=== PATIENT | male | born 1970 | race Hispanic/Latino ===

== ENCOUNTER 2024-09-18 14:16 | Inpatient (IN) | payer SELFPAY ==
[~2024-09-18] VITALS: Ht 167.6 cm; Wt 93.1 kg
[2024-09-18 14:47] LABS: IMMATURE GRANULOCYTE ABSOLUTE 0.04 K/uL (0-1); NUCLEATED RED BLOOD CELLS 0.0 % (0.0-0.19); PLATELET COUNT (AUTO) 202 K/uL (130-400); RED BLOOD CELL COUNT(AUTO) 5.48 MIL/uL (4.50-6.20); RED CELL DISTRIBUTION WIDTH 13.8 % (11.0-15.5); WHITE BLOOD COUNT (AUTO) 13.6 K/uL (4.8-10.8)
[2024-09-18 14:49] LABS: APPEARANCE,URINE CLEAR (CLEAR); GLUCOSE, URINE (UA) NEGATIVE (NEGATIVE); LEUKOCYTE ESTERASE ,URINE NEGATIVE Leu/uL (NEGATIVE); NITRATE,URINE NEGATIVE (NEGATIVE); OCCULT BLOOD,URINE NEGATIVE (NEGATIVE)
[2024-09-18 14:51] LABS: ADD UA MICROSCOPIC NO
[2024-09-18 14:53] LABS: CREATININE 2.1 mg/dL (0.5-1.3); GLOMERULAR FILTR. RATE CALC 37.0 mL/min (>90); GLUCOSE,RANDOM 103.0 mg/dL (70-105); SODIUM SERUM 141.0 mmol/L (136-145); UREA NITROGEN, BLOOD 26.0 mg/dL (7-18)
[2024-09-18] MEDS: 0.9%NACL 1000ML 1,000 ML IV STA (15:15)
--- NOTE | 2024-09-18 16:45 | HMCIMG ---
EXAM: CT Abdomen and Pelvis Without IV contrast CLINICAL HISTORY: flank pain TECHNIQUE: Axial computed tomography images of the abdomen and pelvis without intravenous contrast. CONTRAST: No IV contrast. COMPARISON: None provided. FINDINGS: LUNG BASES: Dependent airway disease along bilateral lower lobes, presumed to represent basal atelectasis. LIVER: Diffuse decrease in hepatic parenchymal attenuation. GALLBLADDER AND BILE DUCTS: The gallbladder appears within normal limits. No radioopaque gallstones are seen. No biliary ductal dilatation is evident. PANCREAS: Unremarkable. SPLEEN: Unremarkable. ADRENAL GLANDS: Unremarkable. KIDNEYS, URETERS, AND BLADDER: 2 mm stone in the right distal ureter (image 37 series 4) with mild right hydroureteronephrosis. 2 non-obstructing renal calculi in the lower calyx of the right kidney largest measuring 7.2 mm. No left renal or ureteral stones. No left hydronephrosis. STOMACH AND BOWEL: Unremarkable appearance of the stomach and bowel. No evidence of bowel obstruction. No evidence suggesting enteritis or colitis. APPENDIX: Normal appendix. PERITONEUM: No free fluid. No free air. LYMPH NODES: No enlarged lymphadenopathy is evident. REPRODUCTIVE: Unremarkable as visualized. VASCULATURE: No evidence of abdominal aortic aneurysm. BONES: Mild degenerative changes in he spine. No aggressively appearing osseous lesion. No acute osseous pathology is evident. IMPRESSION: 2 mm stone in the right distal ureter with mild right hydroureteronephrosis. Subcentimeter nonobstructing right renal collecting system stones. No left-sided stones. No left-sided hydronephrosis. No bowel obstruction or inflammation. Normal appendix. Fatty liver. /[place]
--- NOTE | 2024-09-18 16:53 | ERN ---
ED Note History of Present Illness Stated Complaint: BACK PAIN Chief Complaint: Low Back Pain/Injury Time Seen by MD: 14:25 Time Seen by Midlevel: 14:30 Dictation: 53-year-old male coming in with complaints of right flank pain started yesterday after lifting something heavy. Patient also states he has had nausea and vomiting yesterday. Denies any fever, cough, congestion, abdominal pain, hematuria or dysuria. Allergies: Coded Allergies: No Known Drug Allergies (Unverified Allergy, Unknown, 09/18/24) Past Medical History Past Medical History: No Pertinent History Surgical History: None Review of System Dictation Constitutional: Negative for fever,chills, and weight loss Eyes: Negative for injury, pain,redness, and discharge ENT: Negative for injury,pain or swelling Cardiovascular: Negative for chest pain, palpitations, and edema Respiratory: Negative for shortness of breath, cough, and wheezing, Abdomen/GI: Negative for abdominal pain, nausea, vomiting, diarrhea, and constipation Back: Complaining of right back pain : Negative for injury, bleeding and discharge MS/Extremity: Negative for injury and deformity Skin: Negative for rash, and discoloration Neuro: Negative for headache, weakness, numbness, tingling, and seizure Psych: Negative for suicide ideation, homicidal ideation, and hallucinations Review of Systems: was completed Initial Vital Sign VS Vital Signs Date Time Temp Pulse Resp B/P (MAP) Pulse Ox O2 Delivery O2 Flow Rate FiO2 09/18/24 14:19 98.4 82 18 162/93 98 09/18/24 18:42 Room Air* 0 21 Physical Exam Dictation General: awake, alert, NAD Head/Face: Normocephalic, atraumatic Eyes: PERRL, EOMI, vision at baseline ENT: oral cavity clear, TMs clear, no signs of infection Neck: Trachea midline, supple, no nuchal rigidity Cardiovascular: RRR, normal S1/S2, No MRGs, no JVD Respiratory: CTAB, no respiratory distress, No rales or wheezes Abdomen: Soft, non-tender, non-distended, normal bowel sounds, no guarding or rebound., right CVA tenderness Skin: Warm, dry, normal turgor, no rash MS/Extremity: Pulses equal, no cyanosis, neurovascular intact, FROM Neuro: COAx4, GCS 15, strength 5/5, CN 2-12 intact, normal cerebellar exam, normal gait, Psych: Normal behavior, mood, and affect normal Results (Laboratory/Radiology) Laboratory/Radiology Laboratory Tests Test 09/18/24 14:38 09/18/24 14:40 09/18/24 16:59 White Blood Count 13.6 K/uL (4.8-10.8) H Red Blood Count 5.48 MIL/uL (4.50-6.20) Hemoglobin 16.3 g/dL (14.0-18.0) Hematocrit 47.0 % (42-54) Mean Corpuscular Volume 85.8 fL (79-99) Mean Corpuscular Hemoglobin 29.7 pg (27.0-33.0) Mean Corpuscular Hemoglobin Concent 34.7 g/dL (32.0-36.0) Red Cell Distribution Width 13.8 % (11.0-15.5) Platelet Count 202 K/uL (130-400) Mean Platelet Volume 10.0 fL (7.5-10.5) Immature Granulocyte % (Auto) 0.3 % (0-1) Neutrophils (%) (Auto) 81.9 % (40.0-77.0) H Lymphocytes (%) (Auto) 11.2 % (21.0-51.0) L Monocytes (%) (Auto) 6.0 % (3.0-13.0) Eosinophils (%) (Auto) 0.4 % (0.0-8.0) Basophils (%) (Auto) 0.2 % (0.0-5.0) Neutrophils # (Auto) 11.1 K/uL (1.8-7.7) H Lymphocytes # (Auto) 1.5 K/uL (1.0-4.8) Monocytes # (Auto) 0.8 K/uL (0.1-1.0) Eosinophils # (Auto) 0.05 K/uL (0.00-0.70) Basophils # (Auto) 0.03 K/uL (0.00-0.20) Absolute Immature Granulocyte (auto 0.04 K/uL (0-1) Nucleated Red Blood Cells 0.0 % (0.0-0.19) Sodium Level 141 mmol/L (136-145) 140 mmol/L (136-145) Potassium Level 3.2 mmol/L (3.5-5.1) L 4.2 mmol/L (3.5-5.1) Chloride Level 103 mmol/L (101-111) 104 mmol/L (101-111) Carbon Dioxide Level 28 mmol/L (21-32) 24 mmol/L (21-32) Blood Urea Nitrogen 26 mg/dL (7-18) H 25 mg/dL (7-18) H Creatinine 2.1 mg/dL (0.5-1.3) H 2.0 mg/dL (0.5-1.3) H Glomerular Filtration Rate Calc 37 mL/min (>90) 39 mL/min (>90) Random Glucose 103 mg/dL (70-105) 98 mg/dL (70-105) Total Calcium 9.1 mg/dL (8.5-10.1) 8.6 mg/dL (8.5-10.1) Urine Color LIGHT-YELLOW (YELLOW) Urine Appearance CLEAR (CLEAR) Urine pH 6.0 (5.0-8.0) Urine Specific [place] 1.024 (1.001-1.031) Urine Protein NEGATIVE mg/dL (NEGATIVE) Urine Glucose (UA) NEGATIVE mg/dL (NEGATIVE) Urine Ketones NEGATIVE mg/dL (NEGATIVE) Urine Occult Blood NEGATIVE (NEGATIVE) Urine Nitrate NEGATIVE (NEGATIVE) Urine Bilirubin NEGATIVE mg/dL (NEGATIVE) Urine Urobilinogen 0.2 mg/dL (0.2-1.0) Urine Leukocyte Esterase NEGATIVE [place]/uL Labs Reviewed?: Yes CT Scan Comment: [place] [address] IMAGING REPORT Signed PATIENT: MAE RAMIREZ MR#: [id number] : 1970 SEX: M AGE: 53 LOCATION: [facility] [address] ORDER [id number] STATUS: REG ER REPORT#: [id number] SERVICE [id number] REASON: flank pain ORDERING PHYSICIAN: ALISTAIR SALEH NP PROCEDURE: ABD PEL WO - CT ABDOMEN/PELVIS W/O CONTRAST EXAM: CT Abdomen and Pelvis Without IV contrast CLINICAL HISTORY: flank pain TECHNIQUE: Axial computed tomography images of the abdomen and pelvis without intravenous contrast. CONTRAST: No IV contrast. COMPARISON: None provided. FINDINGS: LUNG BASES: Dependent airway disease along bilateral lower lobes, presumed to represent basal atelectasis. LIVER: Diffuse decrease in hepatic parenchymal attenuation. GALLBLADDER AND BILE DUCTS: The gallbladder appears within normal limits. No radioopaque gallstones are seen. No biliary ductal dilatation is evident. PANCREAS: Unremarkable. SPLEEN: Unremarkable. ADRENAL GLANDS: Unremarkable. KIDNEYS, URETERS, AND BLADDER: 2 mm stone in the right distal ureter (image 37 series 4) with mild right hydroureteronephrosis. 2 non-obstructing renal calculi in the lower calyx of the right kidney largest measuring 7.2 mm. No left renal or ureteral stones. No left hydronephrosis. STOMACH AND BOWEL: Unremarkable appearance of the stomach and bowel. No evidence of bowel obstruction. No evidence suggesting enteritis or colitis. APPENDIX: Normal appendix. PERITONEUM: No free fluid. No free air. LYMPH NODES: No enlarged lymphadenopathy is evident. REPRODUCTIVE: Unremarkable as visualized. VASCULATURE: No evidence of abdominal aortic aneurysm. BONES: Mild degenerative changes in he spine. No aggressively appearing osseous lesion. No acute osseous pathology is evident. IMPRESSION: 2 mm stone in the right distal ureter with mild right hydroureteronephrosis. Subcentimeter nonobstructing right renal collecting system stones. No left-sided stones. No left-sided hydronephrosis. No bowel obstruction or inflammation. Normal appendix. Fatty liver. /[place] DICTATED BY: LORENZO LATHAM MD DATE: 09/18/241744 ELECTRONICALLY SIGNED BY: LORENZO LATHAM MD DATE: 09/18/241744 ED Course ED Course Orders Procedure Category Date Status Time Cbc With Differential LAB 09/18/24 Complete 14:28 Basic Metabolic Panel LAB 09/18/24 Complete 14:28 Urinalysis Profile LAB 09/18/24 Complete 14:28 0.9%Nacl 1000ml (Ns PHA 09/18/24 Complete 1000ml) 14:28 Ketorolac PHA 09/18/24 Complete Tromethamine 15mg/Ml 14:28 Ct Abdomen/Pelvis W/O CT 09/18/24 Resulted Contrast 15:41 Basic Metabolic Panel LAB 09/18/24 Complete 16:53 Current Medications Medications (Trade) Dose Ordered Sig/Sadie Route PRN Reason Start Time Stop Time Status Last Admin Dose Admin Ketorolac Tromethamine (toRADol) 15 mg ONCE STAT IV 09/18/24 14:28 09/18/24 14:31 DC 09/18/24 15:15 Sodium Chloride 1,000 ml @ 1,000 mls/hr Q1H STAT IV 09/18/24 14:28 09/18/24 15:27 DC 09/18/24 15:15 Vital Signs Date Time Temp Pulse Resp B/P (MAP) Pulse Ox O2 Delivery O2 Flow Rate FiO2 09/18/24 18:42 98.4 80 18 157/100 98 Room Air* 0 21 09/18/24 14:19 98.4 82 18 162/93 98 Medical Decision Making MDM MDM: 53-year-old male coming in with complaints of right flank pain started yesterday after lifting something heavy. Patient also states he has had nausea and vomiting yesterday. Denies any fever, cough, congestion, abdominal pain, hematuria or dysuria. Blood work is showing leukocytosis of 13, no anemia, no thrombocytopenia. Chemistry shows elevated creatinine at 2.1 with a elevated BUN. Patient states he has no record of ever having kidney problems. CT scan shows nonobstructing kidney stones in the right. We will admit patient for DELANEY, nephrolithiasis. Differential diagnosis: Kidney stone, muscle spasm, dehydration Rationale: Tests considered and ordered secondary to shared decision making include: labs, ECG and radiology Previous outside records reviewed: Old ER visits. Risk of complication and/or morbidity or mortality of patient management: None Medications-Per medication reconciliation Need for hospitalization: Patient does meet criteria for hospitalization. Need for emergency major/minor surgery: No There are no social concerns with this patient. Prescription drug management Prescriptions will include symptomatic care Patient's prior external medical records from other ER visits were reviewed by me as indicated. Prior testing and results from previous visits were reviewed. Prior tests were taken into account with medical decision making and resource utilization, independent historian/historians were used to obtain complete medical history. I independently interpreted the test that were performed, results were reviewed by me and considered findings on radiology if ordered. Medical management and examination interpretation discussions were had by me with other qualified healthcare professionals as indicated for the patient's care. DX & DISP Disposition: Discharge Decision to Admit Date: Sep 18, 2024 Decision to Admit Time: 18:56 Departure Impression: Primary Impression: Nephrolithiasis Additional Impression: DELANEY (acute kidney injury) Condition: Stable Referrals: SELF,REFERRAL (PCP) ALISTAIR SALEH NP Sep 18, 2024 16:53
[2024-09-18 17:17] LABS: CREATININE 2.0 mg/dL (0.5-1.3); GLOMERULAR FILTR. RATE CALC 39.0 mL/min (>90); GLUCOSE,RANDOM 98.0 mg/dL (70-105); SODIUM SERUM 140.0 mmol/L (136-145); UREA NITROGEN, BLOOD 25.0 mg/dL (7-18)
--- NOTE | 2024-09-18 18:56 | HP ---
History of Present Illness Reason for Visit: flank pain History of Present Illness Mr. Mchugh is a 53-year-old male that was seen and examined today on 09/18/2024. Patient is a good historian of personal health Patient reports that he came to the emergency department with a chief complaint of back pain. Onset was 09/17/2024 at 6:00 p.m.. Location is right lower back. Duration is on and off. Character is described as sharp. 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 There was no alleviating factors. Patient reports associated nausea and vomiting x4 episodes yesterday. Past Medical History ADDITIONAL PAST MEDICAL HISTORY: [Denies] SOCIAL HISTORY: [Negative for smoking, alcohol use, drug use. Patient lives alone. Patient is typically independent of all his ADLs. Patient denies difficulty pain is bills. 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 Dyspnea, Edema, Lt Headedness, Other Gastrointestinal: No: Nausea, Vomiting, Abdominal Pain, Diarrhea, Constipation, Melena, Hematochezia, Other Genitourinary: No Dysuria, No Frequency, No Incontinence, No Hematuria, No Retention, No Other Musculoskeletal: back pain; No: other, neck pain, shoulder pain, arm pain, hand pain, leg pain, foot pain Skin: No Urticaria, No Rash, No Other Neurological: No: Weakness, Numbness, Incoordination, Change in speech, Confusion, Seizures, Other Allergies: Coded Allergies: No Known Drug Allergies (Unverified Allergy, Unknown, 09/18/24) Exam Vital Signs Vital Signs Date Time Temp Pulse Resp B/P (MAP) Pulse Ox O2 Delivery O2 Flow Rate FiO2 09/18/24 18:42 98.4 80 18 157/100 98 Room Air* 0 21 General Appearance: Alert, Oriented X3, Cooperative, No acute distress HEENT: Atraumatic, EOMI, Mucous membr. moist/pink Respiratory: Clear to auscultation, Normal air movement, NL respiratory effort Cardiovascular: Regular rate, Regular rhythm, Normal S1, Normal S2 Abdominal: Normal bowel sounds, No tenderness Extremities: No edema Skin: No significant lesion Neuro: Normal speech, Strength at 5/5 X4 ext, Sensation intact, Cranial nerves 3-12 NL Psych/Mental Status: Mental status NL, Mood NL, Thoughts/Content NL Assessment/Plan ASSESSMENT: [ Acute kidney injury, POA Nephrolithiasis, POA Leukocytosis, POA Hypokalemia, POA Right hydroureteronephrosis, POA] PLAN: [ Admit patient to medical floor as inpatient status. Lactated Ringer's at 75 mL/HR Calculate FENA Check urine sodium, creatinine, osmolality Avoid nephrotoxic agents when possible Renally dose all medications when possible Consider consulting Nephrology service if any worsening renal function or evidence of ATN. Monitor patient's labs. Weight patient daily. Monitor intake and output. Strain all urine Flomax 0.4 mg by mouth once daily Check procalcitonin, follow up with the results Check lactic acid, follow up with the results Check blood culture, follow up with the results Replace potassium per hospital protocol Consider consulting Urology if no improvement in symptoms GI prophylaxis, famotidine DVT prophylaxis, heparin ADVANCED CARE PLANNING 1. Which of the following were discussed? Hospice Care - Yes Therapeutic options - yes Advance Directives - Yes - patient states he does not have any advance directives in place at this time however his son Kevin Mchugh junior can make decisions for him if he becomes unable. Other discussions - patient wishes to remain a full code at this time 2. Discussed with who? Patient 3. Voluntary nature of this service was explained to the patient? Yes 4. Amount of time spent - ___16 minutes____ 5. Reviewed by Physician? (if this service was performed by NPP) Yes This document was generated in part using voice recognition software, occasional wrong word or sound alike substitutions may have occurred due to the inherent limitations of voice recognition software. Read the chart carefully and recognize using context, where the substitutions have occurred. Although every effort was made to edit the content, residential door unit installer and typing errors may occur ATTESTATION BY PHYSICIAN I have seen and examined the patient. I reviewed the documentation, medical decision making, and treatment plan as noted by the mid-level provider above. I agree with the findings and plan of care.] TIANA LYMAN [facility] Sep 18, 2024 18:56
[2024-09-18] MEDS ORDERED: PoTASSium chloRIDE 20MEQ ER 20 MEQ ERTAB PO PRN (19:30)
[2024-09-18] MEDS: LACTATED RINGERS 1000ML 1,000 ML IV SCH (19:44)
[2024-09-18 20:40] LABS: CREATININE,URINE RANDOM 135.76 mg/dL (30-135)
--- NOTE | 2024-09-18 21:36 | NUR ---
Note gina in ED - 09/18/24 at 2138 by AGUSTO AW RENAL ARTERY TO BE DONE, PATIENT HAS A RENAL ARTERY [place] DONE 3 WEEKS AGO PER SONOGROPHER WHICH SHE WAS NEGATIVE OF STENOSIS.
[2024-09-19] VITALS (7 sets, daily range): BP systolic 141–157; BP diastolic 92–101; PULSE 78–89; RESP 18–20; TEMP 98–99.8; O2SAT 98
[2024-09-19] MEDS ORDERED: ACET-2743 PO (02:44)
[2024-09-19 05:27] LABS: IMMATURE GRANULOCYTE ABSOLUTE 0.02 K/uL (0-1); NUCLEATED RED BLOOD CELLS 0.0 % (0.0-0.19); PLATELET COUNT (AUTO) 165 K/uL (130-400); RED BLOOD CELL COUNT(AUTO) 5.00 MIL/uL (4.50-6.20); RED CELL DISTRIBUTION WIDTH 13.8 % (11.0-15.5); WHITE BLOOD COUNT (AUTO) 9.5 K/uL (4.8-10.8)
[2024-09-19 05:53] LABS: CREATININE 2.2 mg/dL (0.5-1.3); GLOMERULAR FILTR. RATE CALC 35.0 mL/min (>90); GLUCOSE,RANDOM 94.0 mg/dL (70-105); PHOSPHORUS 2.9 mg/dL (2.5-4.9); SODIUM SERUM 141.0 mmol/L (136-145); UREA NITROGEN, BLOOD 24.0 mg/dL (7-18)
[2024-09-19] MEDS: PoTASSium chl 10% ELIXIR 20MEQ 20 MEQ/15 ML UDCUP PO PRN (06:41)
[2024-09-19] MEDS: PoTASSium chloRIDE 20MEQ ER 20 MEQ ERTAB PO ONE (09:30)
--- NOTE | 2024-09-19 10:38 | NUR ---
DCP: HOME Pt currently lives alone in her home. Pt does not have DME, home health, or provider services. Pt states that she can complete ADLs independently. Pt does not have a Dr he follows up with but stated that he will be trying to register at [facility] once he DC. At DC pt will want to go home and family can assist with transportation. Addendum: 09/19/24 at 1040 by JOSEPH ARMANDO SS Amended: Links added.
--- NOTE | 2024-09-19 10:50 | PN ---
[facility] PROGRESS NOTE Date of Service: Sep 19, 2024 Time of Service: 10:29 SUBJECTIVE: The patient is a 53-year-old male, no significant past medical history, admitted to hospital with a chief complaint of back pain. In the emergency room a CT of the abdomen and pelvis was done, found to have a 2 mm stone in the right distal ureter with mild right hydroureteronephrosis. Subcentimeter nonobstructing right renal collecting system stones, no left-sided stones, no left-sided hydronephrosis. No bowel obstruction or inflammation, normal appendix, fatty liver. 09/19 patient remains admitted to the medical floor, BP 142/96, afebrile, satur ating normal on room air, CBC unremarkable, potassium 3.3, BUN 24, creatinine 2.2. Continue Flomax 0.4 mg p.o. daily, continue supportive care with IV fluids, pain medication as needed, we will request Urology consultation, close monitoring of the patient's renal function in a.m.. During my visit the patient is comfortably in bed, alert oriented x3, getting supportive care with IV fluids, good pain control with current medical management, family at bedside, updated on plan of care, all questions answered, agreed and understood the information provided. REVIEW OF SYSTEMS CONSTITUTIONAL: Denies fevers, chills, or night sweats. No unintentional weight loss reported. NEUROLOGICAL: Denies headache, amaurosis fugax, motor weakness, sensory deficit, vertigo/spinning sensation, gait abnormalities, or tremors. ENT: No hearing loss, otalgia, otorrhea, rhinitis, rhinorrhea, hoarseness, or sore throat. CARDIOVASCULAR: Denies any exertional angina, dyspnea on exertion, orthopnea, paroxysmal nocturnal dyspnea, palpitations, life-threatening arrhythmias, claudication. PULMONARY: Denies any shortness of breath, cough, phlegm/sputum, hemoptysis, pleuritic chest pain. SLEEP: Denies morning headaches, daytime somnolence or napping. Denies difficulty falling asleep, staying asleep, waking from sleep. Denies knowledge of snoring. GASTROINTESTINAL: Denies any type of dysphagia to either liquids or solids. Denies nausea, vomiting, pyrosis, early satiety, abdominal pain, diarrhea, constipation, or changes in stool consistency or caliber. Denies coffee-ground emesis, hematemesis, hematochezia, or melanotic stools. GENITOURINARY: Denies frequency, urgency, nocturia, hematuria or incontinence (Storage/Irritative symptoms.) Low urinary stream, straining to void, urinary intermittency or hesitancy, splitting of the voiding stream, terminal dribbling. ENDOCRINOLOGIC: Denies polyuria, polydipsia, polyphagia or heat/cold intolerances. HEMATOLOGIC: Denies thrombophilia/previous clots, or coagulopathy/bleeding disorders. ONCOLOGIC: Denies personal history of malignancy. DERMATOLOGIC: Denies rashes or pruritus. PSYCHIATRIC: Denies any suicidal or homicidal ideation. Denies hallucinations. PHYSICAL EXAM GENERAL APPEARANCE: The patient is awake, alert, and oriented, in no acute cardiopulmonary distress. NEUROLOGICAL: Cranial nerves II-XII grossly intact. Motor is 5/5 in bilateral upper and lower extremities proximal to distal. No sensory deficits. HEENT: Face is symmetric. Pupils are equal and reactive. Extraocular movements are intact. NECK: Supple. No JVD. No thyromegaly. No submental, submandibular, pre- /postauricular, occipital or supraclavicular lymphadenopathy. CHEST: Normal chest expansion. No Telemetry. LUNGS: Absence of any rales, rhonchi or any wheezing. CARDIOVASCULAR: Regular. S1 and S2 normal. No appreciable rubs, murmurs or gallops. ABDOMEN: Soft, nontender, and nondistended. There is no rebound, voluntary guarding, or rigidity. : Deferred. No Moralez. EXTREMITIES: Non-edematous and not cyanotic. No clubbing. Good capillary refill. SKIN: No skin breakdown. Vital Signs (last 8hr) Date Time Temp Pulse Resp B/P (MAP) Pulse Ox O2 Delivery O2 Flow Rate FiO2 09/19/24 07:59 98.1 82 18 142/96 98 Room Air 21 09/19/24 03:25 78 156/94 09/19/24 03:23 Room Air* 0 21 LABS: Laboratory: Test 09/19/24 05:24 09/18/24 20:24 09/18/24 19:24 09/18/24 14:40 Range/Units White Blood Count 9.5 # 4.8-10.8 K/uL Red Blood Count 5.00 4.50-6.20 MIL/uL Hemoglobin 14.8 14.0-18.0 g/dL Hematocrit 43.7 42-54 % Mean Corpuscular Volume 87.4 79-99 fL Mean Corpuscular Hemoglobin 29.6 27.0-33.0 pg Mean Corpuscular Hemoglobin Concent 33.9 32.0-36.0 g/dL Red Cell Distribution Width 13.8 11.0-15.5 % Platelet Count 165 130-400 K/uL Mean Platelet Volume 10.2 7.5-10.5 fL Immature Granulocyte % (Auto) 0.2 0-1 % Neutrophils (%) (Auto) 76.4 40.0-77.0 % Lymphocytes (%) (Auto) 14.4 L 21.0-51.0 % Monocytes (%) (Auto) 7.8 3.0-13.0 % Eosinophils (%) (Auto) 0.8 0.0-8.0 % Basophils (%) (Auto) 0.4 0.0-5.0 % Neutrophils # (Auto) 7.3 1.8-7.7 K/uL Lymphocytes # (Auto) 1.4 1.0-4.8 K/uL Monocytes # (Auto) 0.7 0.1-1.0 K/uL Eosinophils # (Auto) 0.08 0.00-0.70 K/uL Basophils # (Auto) 0.04 0.00-0.20 K/uL Absolute Immature Granulocyte (auto 0.02 0-1 K/uL Nucleated Red Blood Cells 0.0 0.0-0.19 % Sodium Level 141 136-145 mmol/L Potassium Level 3.3 L 3.5-5.1 mmol/L Chloride Level 106 101-111 mmol/L Carbon Dioxide Level 25 21-32 mmol/L Blood Urea Nitrogen 24 H 7-18 mg/dL Creatinine 2.2 H 0.5-1.3 mg/dL Glomerular Filtration Rate Calc 35 >90 mL/min Random Glucose 94 70-105 mg/dL Total Calcium 8.6 8.5-10.1 mg/dL Phosphorus Level 2.9 2.5-4.9 mg/dL Magnesium Level 2.10 1.80-2.40 mg/dL Urine Random Creatinine 135.76 H 30-135 mg/dL Urine Random Sodium 44 40-220 mmol/l Lactic Acid Level 1.4 0.8-2.5 mmol/L Procalcitonin 0.14 0.05-0.5 ng/mL Urine Color LIGHT-YELLOW YELLOW Urine Appearance CLEAR CLEAR Urine pH 6.0 5.0-8.0 Urine Specific [place] 1.024 1.001-1.031 Urine Protein NEGATIVE NEGATIVE mg/dL Urine Glucose (UA) NEGATIVE NEGATIVE mg/dL Urine Ketones NEGATIVE NEGATIVE mg/dL Urine Occult Blood NEGATIVE NEGATIVE Urine Nitrate NEGATIVE NEGATIVE Urine Bilirubin NEGATIVE NEGATIVE mg/dL Urine Urobilinogen 0.2 0.2-1.0 mg/dL Urine Leukocyte Esterase NEGATIVE NEGATIVE [place]/uL Current Medications Medications (Trade) Dose Ordered Sig/Sadie Route PRN Reason Start Time Stop Time Status Last Admin Dose Admin Acetaminophen (TYLenol 325MG TAB) 650 mg Q6H PRN PO TEMPERATURE GREATER THAN 101.5 09/18/24 19:30 10/18/24 19:29 Heparin Sodium (Porcine) (HEParin 5,000 UNIT VIAL) 5,000 unit BID SQ 09/18/24 21:00 10/18/24 20:59 09/19/24 08:26 5,000 UNIT Hydralazine HCl (APRESOLine 20MG INJ) 10 mg Q6H PRN IV For:SBP above 160;DBP above 90 09/18/24 19:30 10/18/24 19:29 Ketorolac Tromethamine (toRADol) 15 mg ONCE STAT IV 09/18/24 14:28 09/18/24 14:31 DC 09/18/24 15:15 15 MG Lactated Ringer's 1,000 ml @ 75 mls/hr [id number] IV 09/18/24 19:30 10/18/24 19:29 09/18/24 19:44 75 MLS/HR Magnesium Sulfate 50 ml @ 0 mls/hr PROTOCOL PRN IV h 09/18/24 19:30 10/18/24 19:29 Morphine Sulfate (morPHINE 2MG SYG) 2 mg Q4H PRN IVP SEVERE PAIN (7-10) 09/18/24 19:30 09/25/24 19:29 09/19/24 04:03 2 MG Ondansetron HCl (zoFRAN 4MG INJ) 4 mg Q6H PRN IV NAUSEA/VOMITING 09/18/24 19:30 10/18/24 19:29 Pantoprazole Sodium (PROTonix 40MG TAB) 40 mg DAILY PO 09/19/24 09:00 10/19/24 08:59 09/19/24 08:22 40 MG Potassium Chloride 100 ml @ 100 mls/hr AD PRN IV POTASSIUM PROTOCOL 09/18/24 19:30 10/18/24 19:29 Potassium Chloride (K-Dur/Klor-Con 20meq) 20 meq AD PRN PO POTASSIUM PROTOCOL 09/18/24 19:30 10/18/24 19:29 Potassium Chloride (KCl 10% Elixir 20meq/15ml) 20 meq AD PRN PO POTASSIUM PROTOCOL 09/18/24 19:30 10/18/24 19:29 09/19/24 08:22 20 MEQ Sodium Chloride 1,000 ml @ 1,000 mls/hr Q1H STAT IV 09/18/24 14:28 09/18/24 15:27 DC 09/18/24 15:15 1,000 MLS/HR Tamsulosin HCl (FloMAX) 0.4 mg DAILY PO 09/19/24 09:00 10/19/24 08:59 09/19/24 08:22 0.4 MG DIAGNOSTICS / RADIOLOGY: [ ] ASSESSMENT: Acute kidney injury, POA Nephrolithiasis, POA Leukocytosis, POA Hypokalemia, POA Right hydroureteronephrosis, POA PLAN: Continue Flomax 0.4 mg p.o. daily, continue supportive care with IV fluids, pain medication as needed, we will request Urology consultation, close monitoring of the patient's renal function in a.m.. NEURO: Minimize central acting medications as possible. Fall Precautions. Well lighted room through the day and minimize interruptions through the night to prevent acute delirium. PULMONARY: Supplemental 02 as needed BiPAP as necessary, for respiratory distress Titrate Fio2 to keep Spo2 > or = 90% DuoNebs and CPT as needed IS hourly while awake for pulmonary hygiene prn Out of bed to chair as tolerated Maintain aspiration precautions at all times CARDIOVASCULAR: Follow hemodynamics. Vital signs per facility protocol GI & NUTRITION: Continue nutritional support Aspirations precautions Prokinetic agents and laxatives as needed KIDNEYS & ELECTROLYTES: Strict monitoring of intake and output Daily weights Avoid nephrotoxic agents Monitor electrolytes and replace as needed Goal urine output of 30mL/hr or 0.5mL/kg/hr Medications to be dosed according to renal function. Avoid contrast if possible ENDOCRINE: Maintain blood glucose between 100-180 at all times. Insulin sliding scale for blood glucose management Hypoglycemia and hyperglycemia protocol in place INFECTIOUS DISEASE: Trend temperature, WBC and procalcitonin level Follow cultures, deescalate antibiotics as soon as possible. Panculture if new onset fever HEMATOLOGY & COAGULATION: Monitor H&H. Keep Hgb > 7 Transfuse 1 unit of PRBC for Hgb < 7 Transfuse 1 pack of platelets of platelets < 20, 000 Watch for any signs and symptoms of bleeding SKIN: Pressure ulcer prevention per facility protocol Specialty mattress as needed ORTHO/REHAB Continue PT/OT PRN: MEDICATIONS Tylenol 650 mg po every 4 hrs for fever zofran 4 mg IV every 6 hrs for n/v Hydralazine 5 mg IV every 4 hrs systolic pressure > 160 bowel regiment: lactulose 20 gm PO BID PRN constipation Supportive measures: Continue GI and DVT prophylaxis Disposition: Pending improvement in clinical condition All questions answered time spent: > 35 min MAGDI LUZ MD Sep 19, 2024 10:49
--- NOTE | 2024-09-19 22:43 | CONS ---
CONSULTATION NOTE Date of Service: Sep 19, 2024 Reason for Consultation: 1-2 mm right distal ureteral calculus Requesting Physician: Truman Shipman MD HISTORY OF PRESENT ILLNESS: 53-year-old man in a good state of health, presented to the emergency department with a chief complaint of back pain. Onset was 09/17/2024 at 6:00 p.m.. Location is right lower back. Duration is on and off. Character is described as sharp. 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 There was no alleviating factors. Patient reports associated nausea and vomiting x4 episodes yesterday. CT imaging revealed a1 mm calculus in the right distal ureter with mild hydronephrosis on the right side. There are nonobstructing stones in the right kidney the largest is about7 mm. Patient was admitted to the floor for supportive care with a urological consult. REVIEW OF SYSTEMS CONSTITUTIONAL: Denies fever, chills, or fatigue. HEAD/FACE: No signs of trauma. EENT: Denies eye pain, blurred vision, double vision, or light sensitivity. RESPIRATORY: Denies shortness of breath, cough, wheezing CARDIOVASCULAR: Denies chest pain, palpitation, syncope GASTROINTESTINAL/ABDOMINAL: Denies abdominal pain, constipation, diarrhea, nausea or vomiting GENITOURINARY: Denies dysuria or hematuria. MUSCULOSKELETAL: Denies joint pain, tenderness, or trauma. INTEGUMENTARY: Denies rash or itchiness NEUROLOGICAL/PSYCH: Denies anxiety, depression, heat or cold intolerance. PAST MEDICAL HISTORY: None PAST SURGICAL HISTORY: None PAST SOCIAL HISTORY: Denies smoking, consumes ethanol socially and denies recreational drugs FAMILY HISTORY: Noncontributory to presenting complaint Coded Allergies: No Known Drug Allergies (Unverified Allergy, Unknown, 09/18/24) PHYSICAL EXAM EYES: Anicteric. Pupils equal and reactive. HENT: No oral thrush seen, moist Oral mucosa NECK: Supple, no JVD or thyromegaly. LUNGS: Good air entry. No rales, no rhonchi. CARDIOVASCULAR: S1, S2 regular. No murmur heard. ABDOMEN: Soft, non tender, bowel sounds present, no organomegaly CENTRAL NERVOUS SYSTEM: Awake, alert, oriented x 3. No focal deficits. SKIN: No rashes, no swelling. LYMPHATICS: No peripheral lymphadenopathy MUSCULOSKELETAL: No joint swelling, erythema or tenderness. EXTREMITIES: No cyanosis or clubbing BACK: No deformity, no pressure ulcer. GENITOURINARY: Normal Vital Sign (Last 24 Hours) 09/19/24 09/19/24 09/19/24 08:00 16:00 20:00 Temp 99.9 Pulse 89 Resp 20 B/P (MAP) 155/92 Pulse Ox 94 O2 Delivery Room Air O2 Flow Rate 0 FiO2 21 Intake & Output (last 24hrs) 09/18/24 09/18/24 09/19/24 15:00 23:00 07:00 Intake Total 620.0 ml Output Total 300 ml Balance 320.0 ml LABS: Laboratory: Test 09/19/24 05:24 09/18/24 20:24 09/18/24 19:24 09/18/24 14:40 Range/Units White Blood Count 9.5 # 4.8-10.8 K/uL Red Blood Count 5.00 4.50-6.20 MIL/uL Hemoglobin 14.8 14.0-18.0 g/dL Hematocrit 43.7 42-54 % Mean Corpuscular Volume 87.4 79-99 fL Mean Corpuscular Hemoglobin 29.6 27.0-33.0 pg Mean Corpuscular Hemoglobin Concent 33.9 32.0-36.0 g/dL Red Cell Distribution Width 13.8 11.0-15.5 % Platelet Count 165 130-400 K/uL Mean Platelet Volume 10.2 7.5-10.5 fL Immature Granulocyte % (Auto) 0.2 0-1 % Neutrophils (%) (Auto) 76.4 40.0-77.0 % Lymphocytes (%) (Auto) 14.4 L 21.0-51.0 % Monocytes (%) (Auto) 7.8 3.0-13.0 % Eosinophils (%) (Auto) 0.8 0.0-8.0 % Basophils (%) (Auto) 0.4 0.0-5.0 % Neutrophils # (Auto) 7.3 1.8-7.7 K/uL Lymphocytes # (Auto) 1.4 1.0-4.8 K/uL Monocytes # (Auto) 0.7 0.1-1.0 K/uL Eosinophils # (Auto) 0.08 0.00-0.70 K/uL Basophils # (Auto) 0.04 0.00-0.20 K/uL Absolute Immature Granulocyte (auto 0.02 0-1 K/uL Nucleated Red Blood Cells 0.0 0.0-0.19 % Sodium Level 141 136-145 mmol/L Potassium Level 3.3 L 3.5-5.1 mmol/L Chloride Level 106 101-111 mmol/L Carbon Dioxide Level 25 21-32 mmol/L Blood Urea Nitrogen 24 H 7-18 mg/dL Creatinine 2.2 H 0.5-1.3 mg/dL Glomerular Filtration Rate Calc 35 >90 mL/min Random Glucose 94 70-105 mg/dL Total Calcium 8.6 8.5-10.1 mg/dL Phosphorus Level 2.9 2.5-4.9 mg/dL Magnesium Level 2.10 1.80-2.40 mg/dL Urine Osmolality 409 50-1200 mOsm/kg Urine Random Creatinine 135.76 H 30-135 mg/dL Urine Random Sodium 44 40-220 mmol/l Lactic Acid Level 1.4 0.8-2.5 mmol/L Procalcitonin 0.14 0.05-0.5 ng/mL Urine Color LIGHT-YELLOW YELLOW Urine Appearance CLEAR CLEAR Urine pH 6.0 5.0-8.0 Urine Specific [place] 1.024 1.001-1.031 Urine Protein NEGATIVE NEGATIVE mg/dL Urine Glucose (UA) NEGATIVE NEGATIVE mg/dL Urine Ketones NEGATIVE NEGATIVE mg/dL Urine Occult Blood NEGATIVE NEGATIVE Urine Nitrate NEGATIVE NEGATIVE Urine Bilirubin NEGATIVE NEGATIVE mg/dL Urine Urobilinogen 0.2 0.2-1.0 mg/dL Urine Leukocyte Esterase NEGATIVE NEGATIVE [place]ure[place]/uL DIAGNOSTICS / RADIOLOGY: CT abdomen and pelvis, stone protocol, showed nonobstructing stones bilaterally to identified in the right kidney largest7 mm and a 1 mm stone in the right distal ureter with mild fullness of the right collecting system. ASSESSMENT: 53-year-old man presents with renal colic symptoms caused by 1 mm calculus in the right distal ureter PLAN: 1. We strongly recommend expectant management with tamsulosin, fluid administration and pain control. Patient we eventually pass the stone. 2. He can see us in the office for treatment of the larger7 mm right renal calculus. 3. Thank you for involving us in the care of this patient 60 minutes spent to complete this visit and consult, more than half of the time was spent at bedside in counseling and coordination of care and addressing questions and concerns post by patient, some time was spent discussing and communicating with members of patient's care team, the rest of the time was spent reviewing medical records including laboratory and imaging data CELY ARREOLA MD Sep 19, 2024 22:43
[2024-09-20] VITALS: BP 147/87; PULSE 87; RESP 20; TEMP 98.5
[2024-09-20 04:00] VITALS: BP 143/92; PULSE 79; RESP 20; TEMP 98.7
[2024-09-20 06:12] LABS: NUCLEATED RED BLOOD CELLS 0.0 % (0.0-0.19); PLATELET COUNT (AUTO) 154.0 K/uL (130-400); RED BLOOD CELL COUNT(AUTO) 4.61 MIL/uL (4.50-6.20); RED CELL DISTRIBUTION WIDTH 13.6 % (11.0-15.5); WHITE BLOOD COUNT (AUTO) 9.2 K/uL (4.8-10.8)
[2024-09-20 06:27] LABS: ASPARTATE AMINOTRANSFERASE 14.0 U/L (10-37); CREATININE 2.3 mg/dL (0.5-1.3); GLOMERULAR FILTR. RATE CALC 33.0 mL/min (>90); GLUCOSE,RANDOM 88.0 mg/dL (70-105); SODIUM SERUM 140.0 mmol/L (136-145); TOTAL PROTEIN, SERUM 6.6 g/dL (6.0-8.3); UREA NITROGEN, BLOOD 21.0 mg/dL (7-18)
[2024-09-20] MEDS: MAGNESIUM 2GM PREMIX 50ML 50 ML IV PRN (06:34)
[2024-09-20 08:00] VITALS: BP 138/96; PULSE 75; RESP 18; TEMP 98.6; O2SAT 93
--- NOTE | 2024-09-20 10:18 | PN ---
[facility] PROGRESS NOTE Date of Service: Sep 20, 2024 Time of Service: 10:16 SUBJECTIVE: The patient is a 53-year-old male, no significant past medical history, admitted to hospital with a chief complaint of back pain. In the emergency room a CT of the abdomen and pelvis was done, found to have a 2 mm stone in the right distal ureter with mild right hydroureteronephrosis. Subcentimeter nonobstructing right renal collecting system stones, no left-sided stones, no left-sided hydronephrosis. No bowel obstruction or inflammation, normal appendix, fatty liver. 09/19 patient remains admitted to the medical floor, BP 142/96, afebrile, satur ating normal on room air, CBC unremarkable, potassium 3.3, BUN 24, creatinine 2.2. Continue Flomax 0.4 mg p.o. daily, continue supportive care with IV fluids, pain medication as needed, we will request Urology consultation, close monitoring of the patient's renal function in a.m.. During my visit the patient is comfortably in bed, alert oriented x3, getting supportive care with IV fluids, good pain control with current medical management, family at bedside, updated on plan of care, all questions answered, agreed and understood the information provided. 09/20 patient remains admitted to the medical floor, hemodynamically stable, af ebrile, saturating normal on room air, creatinine worse today at 2.3. Patient evaluated by urologist, recommended spectrum management with the Flomax, continue IV fluids and pain control, patient will eventually pass the stone, patient can follow up as an outpatient for treatment of the larger 7 mm right renal calculus. We will order renal ultrasound. During my visit the patient is comfortably in bed, alert oriented x3, following commands, getting supportive care with IV fluids, good pain control with current medical management, no nausea, no vomiting, no abdominal pain, denies hematuria. REVIEW OF SYSTEMS CONSTITUTIONAL: Denies fevers, chills, or night sweats. No unintentional weight loss reported. NEUROLOGICAL: Denies headache, amaurosis fugax, motor weakness, sensory deficit, vertigo/spinning sensation, gait abnormalities, or tremors. ENT: No hearing loss, otalgia, otorrhea, rhinitis, rhinorrhea, hoarseness, or sore throat. CARDIOVASCULAR: Denies any exertional angina, dyspnea on exertion, orthopnea, paroxysmal nocturnal dyspnea, palpitations, life-threatening arrhythmias, claudication. PULMONARY: Denies any shortness of breath, cough, phlegm/sputum, hemoptysis, pleuritic chest pain. SLEEP: Denies morning headaches, daytime somnolence or napping. Denies difficulty falling asleep, staying asleep, waking from sleep. Denies knowledge of snoring. GASTROINTESTINAL: Denies any type of dysphagia to either liquids or solids. Denies nausea, vomiting, pyrosis, early satiety, abdominal pain, diarrhea, constipation, or changes in stool consistency or caliber. Denies coffee-ground emesis, hematemesis, hematochezia, or melanotic stools. GENITOURINARY: Denies frequency, urgency, nocturia, hematuria or incontinence (Storage/Irritative symptoms.) Low urinary stream, straining to void, urinary intermittency or hesitancy, splitting of the voiding stream, terminal dribbling. ENDOCRINOLOGIC: Denies polyuria, polydipsia, polyphagia or heat/cold intolerances. HEMATOLOGIC: Denies thrombophilia/previous clots, or coagulopathy/bleeding disorders. ONCOLOGIC: Denies personal history of malignancy. DERMATOLOGIC: Denies rashes or pruritus. PSYCHIATRIC: Denies any suicidal or homicidal ideation. Denies hallucinations. PHYSICAL EXAM GENERAL APPEARANCE: The patient is awake, alert, and oriented, in no acute cardiopulmonary distress. NEUROLOGICAL: Cranial nerves II-XII grossly intact. Motor is 5/5 in bilateral upper and lower extremities proximal to distal. No sensory deficits. HEENT: Face is symmetric. Pupils are equal and reactive. Extraocular movements are intact. NECK: Supple. No JVD. No thyromegaly. No submental, submandibular, pre- /postauricular, occipital or supraclavicular lymphadenopathy. CHEST: Normal chest expansion. No Telemetry. LUNGS: Absence of any rales, rhonchi or any wheezing. CARDIOVASCULAR: Regular. S1 and S2 normal. No appreciable rubs, murmurs or gallops. ABDOMEN: Soft, nontender, and nondistended. There is no rebound, voluntary guarding, or rigidity. : Deferred. No Moralez. EXTREMITIES: Non-edematous and not cyanotic. No clubbing. Good capillary refill. SKIN: No skin breakdown. Vital Signs (last 8hr) Date Time Temp Pulse Resp B/P (MAP) Pulse Ox O2 Delivery O2 Flow Rate FiO2 09/20/24 08:00 98.6 75 18 138/96 93 Room Air 21 09/20/24 04:00 98.8 79 20 143/92 96 Room Air LABS: Laboratory: Test 09/20/24 05:46 09/19/24 05:24 09/18/24 20:24 09/18/24 19:24 Range/Units White Blood Count 9.2 4.8-10.8 K/uL Red Blood Count 4.61 4.50-6.20 MIL/uL Hemoglobin 13.7 L 14.0-18.0 g/dL Hematocrit 40.4 L 42-54 % Mean Corpuscular Volume 87.6 79-99 fL Mean Corpuscular Hemoglobin 29.7 27.0-33.0 pg Mean Corpuscular Hemoglobin Concent 33.9 32.0-36.0 g/dL Red Cell Distribution Width 13.6 11.0-15.5 % Platelet Count 154 130-400 K/uL Mean Platelet Volume 10.6 H 7.5-10.5 fL Nucleated Red Blood Cells 0.0 0.0-0.19 % Sodium Level 140 136-145 mmol/L Potassium Level 4.2 3.5-5.1 mmol/L Chloride Level 107 101-111 mmol/L Carbon Dioxide Level 26 21-32 mmol/L Blood Urea Nitrogen 21 H 7-18 mg/dL Creatinine 2.3 H 0.5-1.3 mg/dL Glomerular Filtration Rate Calc 33 >90 mL/min Random Glucose 88 70-105 mg/dL Total Calcium 8.6 8.5-10.1 mg/dL Magnesium Level 1.90 1.80-2.40 mg/dL Total Bilirubin 0.8 0.2-1.0 mg/dL Aspartate Amino Transf (AST/SGOT) 14 10-37 U/L Alanine Aminotransferase (ALT/SGPT) 23 12-78 U/L Alkaline Phosphatase 50 50-136 U/L Total Protein 6.6 6.0-8.3 g/dL Albumin 2.9 L 3.5-5.0 g/dL Immature Granulocyte % (Auto) 0.2 0-1 % Neutrophils (%) (Auto) 76.4 40.0-77.0 % Lymphocytes (%) (Auto) 14.4 L 21.0-51.0 % Monocytes (%) (Auto) 7.8 3.0-13.0 % Eosinophils (%) (Auto) 0.8 0.0-8.0 % Basophils (%) (Auto) 0.4 0.0-5.0 % Neutrophils # (Auto) 7.3 1.8-7.7 K/uL Lymphocytes # (Auto) 1.4 1.0-4.8 K/uL Monocytes # (Auto) 0.7 0.1-1.0 K/uL Eosinophils # (Auto) 0.08 0.00-0.70 K/uL Basophils # (Auto) 0.04 0.00-0.20 K/uL Absolute Immature Granulocyte (auto 0.02 0-1 K/uL Phosphorus Level 2.9 2.5-4.9 mg/dL Urine Osmolality 409 50-1200 mOsm/kg Urine Random Creatinine 135.76 H 30-135 mg/dL Urine Random Sodium 44 40-220 mmol/l Lactic Acid Level 1.4 0.8-2.5 mmol/L Procalcitonin 0.14 0.05-0.5 ng/mL Test 09/18/24 14:40 Range/Units Urine Color LIGHT-YELLOW YELLOW Urine Appearance CLEAR CLEAR Urine pH 6.0 5.0-8.0 Urine Specific [place] 1.024 1.001-1.031 Urine Protein NEGATIVE NEGATIVE mg/dL Urine Glucose (UA) NEGATIVE NEGATIVE mg/dL Urine Ketones NEGATIVE NEGATIVE mg/dL Urine Occult Blood NEGATIVE NEGATIVE Urine Nitrate NEGATIVE NEGATIVE Urine Bilirubin NEGATIVE NEGATIVE mg/dL Urine Urobilinogen 0.2 0.2-1.0 mg/dL Urine Leukocyte Esterase NEGATIVE NEGATIVE [place]/uL Current Medications Medications (Trade) Dose Ordered Sig/Sadie Route PRN Reason Start Time Stop Time Status Last Admin Dose Admin Acetaminophen (TYLenol 325MG TAB) 650 mg Q6H PRN PO TEMPERATURE GREATER THAN 101.5 09/18/24 19:30 10/18/24 19:29 Heparin Sodium (Porcine) (HEParin 5,000 UNIT VIAL) 5,000 unit BID SQ 09/18/24 21:00 10/18/24 20:59 09/20/24 08:18 5,000 UNIT Hydralazine HCl (APRESOLine 20MG INJ) 10 mg Q6H PRN IV For:SBP above 160;DBP above 90 09/18/24 19:30 10/18/24 19:29 Ketorolac Tromethamine (toRADol) 15 mg ONCE STAT IV 09/18/24 14:28 09/18/24 14:31 DC 09/18/24 15:15 15 MG Lactated Ringer's 1,000 ml @ 75 mls/hr [id number] IV 09/18/24 19:30 10/18/24 19:29 09/19/24 22:20 75 MLS/HR Magnesium Sulfate 50 ml @ 0 mls/hr PROTOCOL PRN IV h 09/18/24 19:30 10/18/24 19:29 09/20/24 06:34 25 MLS/HR Morphine Sulfate (morPHINE 2MG SYG) 2 mg Q4H PRN IVP SEVERE PAIN (7-10) 09/18/24 19:30 09/25/24 19:29 09/19/24 19:57 2 MG Ondansetron HCl (zoFRAN 4MG INJ) 4 mg Q6H PRN IV NAUSEA/VOMITING 09/18/24 19:30 10/18/24 19:29 Pantoprazole Sodium (PROTonix 40MG TAB) 40 mg DAILY PO 09/19/24 09:00 10/19/24 08:59 09/20/24 08:15 40 MG Potassium Chloride 100 ml @ 100 mls/hr AD PRN IV POTASSIUM PROTOCOL 09/18/24 19:30 10/18/24 19:29 Potassium Chloride (K-Dur/Klor-Con 20meq) 20 meq AD PRN PO POTASSIUM PROTOCOL 09/18/24 19:30 10/18/24 19:29 Potassium Chloride (KCl 10% Elixir 20meq/15ml) 20 meq AD PRN PO POTASSIUM PROTOCOL 09/18/24 19:30 10/18/24 19:29 09/19/24 13:45 20 MEQ Sodium Chloride 1,000 ml @ 1,000 mls/hr Q1H STAT IV 09/18/24 14:28 09/18/24 15:27 DC 09/18/24 15:15 1,000 MLS/HR Tamsulosin HCl (FloMAX) 0.4 mg DAILY PO 09/19/24 09:00 10/19/24 08:59 09/20/24 08:15 0.4 MG DIAGNOSTICS / RADIOLOGY: [ ] ASSESSMENT: Acute kidney injury, POA Nephrolithiasis, POA 2 mm stone in the right distal ureter with mild right hydroureteronephrosis To nonobstructing renal calculi in the lower calyx of the right kidney largest measuring 7.2 mm Leukocytosis, POA Hypokalemia, POA Right hydroureteronephrosis, POA PLAN: patient remains admitted to the medical floor, hemodynamically stable, afebrile, saturating normal on room air, creatinine worse today at 2.3. Patient evaluated by urologist, recommended spectrum management with the Flomax, continue IV fluids and pain control, patient will eventually pass the stone, patient can follow up as an outpatient for treatment of the larger 7 mm right renal calculus. We will order renal ultrasound. We will discuss case with the Urology. NEURO: Minimize central acting medications as possible. Fall Precautions. Well lighted room through the day and minimize interruptions through the night to prevent acute delirium. PULMONARY: Supplemental 02 as needed BiPAP as necessary, for respiratory distress Titrate Fio2 to keep Spo2 > or = 90% DuoNebs and CPT as needed IS hourly while awake for pulmonary hygiene prn Out of bed to chair as tolerated Maintain aspiration precautions at all times CARDIOVASCULAR: Follow hemodynamics. Vital signs per facility protocol GI & NUTRITION: Continue nutritional support Aspirations precautions Prokinetic agents and laxatives as needed KIDNEYS & ELECTROLYTES: Strict monitoring of intake and output Daily weights Avoid nephrotoxic agents Monitor electrolytes and replace as needed Goal urine output of 30mL/hr or 0.5mL/kg/hr Medications to be dosed according to renal function. Avoid contrast if possible ENDOCRINE: Maintain blood glucose between 100-180 at all times. Insulin sliding scale for blood glucose management Hypoglycemia and hyperglycemia protocol in place INFECTIOUS DISEASE: Trend temperature, WBC and procalcitonin level Follow cultures, deescalate antibiotics as soon as possible. Panculture if new onset fever HEMATOLOGY & COAGULATION: Monitor H&H. Keep Hgb > 7 Transfuse 1 unit of PRBC for Hgb < 7 Transfuse 1 pack of platelets of platelets < 20, 000 Watch for any signs and symptoms of bleeding SKIN: Pressure ulcer prevention per facility protocol Specialty mattress as needed ORTHO/REHAB Continue PT/OT PRN: MEDICATIONS Tylenol 650 mg po every 4 hrs for fever zofran 4 mg IV every 6 hrs for n/v Hydralazine 5 mg IV every 4 hrs systolic pressure > 160 bowel regiment: lactulose 20 gm PO BID PRN constipation Supportive measures: Continue GI and DVT prophylaxis Disposition: Pending improvement in clinical condition All questions answered time spent: > 35 min MAGDI LUZ MD Sep 20, 2024 10:18
[2024-09-20 11:49] VITALS: BP 144/88; PULSE 91; RESP 19; TEMP 98.2
[2024-09-20 16:00] VITALS: BP 113/87; PULSE 72; RESP 18; TEMP 99.1
--- NOTE | 2024-09-20 17:29 | HMCIMG ---
Exam: Renal Ultrasound History: Renal failure. 2 mm obstructing distal right ureteral stone seen on Comparison: CT abdomen and pelvis 09/18/2024 Technique: Grayscale and color Doppler imaging was performed. Static images were obtained. Findings: Right kidney: The right kidney is normal in size, contour, and echogenicity. It measures 15.2 cm in length. No calculi or masses are identified. There is no evidence of hydronephrosis. Small subcentimeter simple cyst Left kidney: The left kidney is normal in size, contour, and echogenicity. It measures 13.4 cm in length. No calculi or masses are identified. There is no evidence of hydronephrosis. Small subcentimeter simple cyst Urinary bladder: The bladder is normal in contour and appearance. Normal bilateral ureteral jets are demonstrated with color/Doppler imaging. IMPRESSION: 1. No acute renal or bladder abnormality. 2. Small simple cysts in both kidneys. /[place]
[2024-09-20 21:22] VITALS: BP 151/92; PULSE 74; RESP 18; TEMP 98
[2024-09-21 00:46] VITALS: BP 139/91; PULSE 69; RESP 18; TEMP 98.2
[2024-09-21 04:16] VITALS: BP 143/94; PULSE 61; RESP 18; TEMP 98.5
[2024-09-21 04:44] LABS: NUCLEATED RED BLOOD CELLS 0.0 % (0.0-0.19); PLATELET COUNT (AUTO) 170.0 K/uL (130-400); RED BLOOD CELL COUNT(AUTO) 4.65 MIL/uL (4.50-6.20); RED CELL DISTRIBUTION WIDTH 13.6 % (11.0-15.5); WHITE BLOOD COUNT (AUTO) 6.2 K/uL (4.8-10.8)
[2024-09-21 05:03] LABS: ASPARTATE AMINOTRANSFERASE 14.0 U/L (10-37); CREATININE 1.5 mg/dL (0.5-1.3); GLOMERULAR FILTR. RATE CALC 55.0 mL/min (>90); GLUCOSE,RANDOM 87.0 mg/dL (70-105); SODIUM SERUM 142.0 mmol/L (136-145); TOTAL PROTEIN, SERUM 6.7 g/dL (6.0-8.3); UREA NITROGEN, BLOOD 25.0 mg/dL (7-18)
[2024-09-21 08:00] VITALS: BP 140/93; PULSE 78; RESP 19; TEMP 98.3
--- NOTE | 2024-09-21 10:58 | DS ---
Discharge Summary Hospital Course Summary: The patient is a 53-year-old male, no significant past medical history, admitted to hospital with a chief complaint of back pain. In the emergency room a CT of the abdomen and pelvis was done, found to have a 2 mm stone in the right distal ureter with mild right hydroureteronephrosis. Subcentimeter nonobstructing right renal collecting system stones, no left-sided stones, no left-sided hydronephrosis. No bowel obstruction or inflammation, normal appendix, fatty liver. 09/19 patient remains admitted to the medical floor, BP 142/96, afebrile, saturating normal on room air, CBC unremarkable, potassium 3.3, BUN 24, creatinine 2.2. Continue Flomax 0.4 mg p.o. daily, continue supportive care with IV fluids, pain medication as needed, we will request Urology consultation, close monitoring of the patient's renal function in a.m.. During my visit the patient is comfortably in bed, alert oriented x3, getting supportive care with IV fluids, good pain control with current medical management, family at bedside, updated on plan of care, all questions answered, agreed and understood the information provided. 09/20 patient remains admitted to the medical floor, hemodynamically stable, afebrile, saturating normal on room air, creatinine worse today at 2.3. Patient evaluated by urologist, recommended spectrum management with the Flomax, continue IV fluids and pain control, patient will eventually pass the stone, patient can follow up as an outpatient for treatment of the larger 7 mm right renal calculus. We will order renal ultrasound. During my visit the patient is comfortably in bed, alert oriented x3, following commands, getting supportive care with IV fluids, good pain control with current medical management, no nausea, no vomiting, no abdominal pain, denies hematuria. 09/21 today patient is comfortably in bed, hemodynamically stable, alert oriented x3, no acute events overnight per discussion with the RN. Per my discussion with the patient he has thinks he passed small amount of " Sand" yesterday, no hematuria noted but urine was dark. He denies abdominal discomfort. Creatinine improved to 1.6. Patient to be discharged home today. [employer] Supervisor(s): Urology Assessment/Plan: Final diagnosis Acute kidney injury, POA Nephrolithiasis, POA 2 mm stone in the right distal ureter with mild right hydroureteronephrosis To nonobstructing renal calculi in the lower calyx of the right kidney largest measuring 7.2 mm Leukocytosis, POA Hypokalemia, POA Right hydroureteronephrosis, POA Discharge Instructions: Patient to be discharged home today, to follow up with primary care physician to recheck creatinine in the next one week as well as with the urologist as an outpatient. Advised to keep himself well hydrated, return to the hospital if his condition changes, patient agreed with the plan and understood the information provided. Home Medications: Reported Medications Acetaminophen (Tylenol Extra Strength) 500 Mg Tablet, 2 TAB PO Q6HPRN PRN for pain or fever for 7 Days, #56 TAB 0 Refills 09/19/24 Time spent arranging discharge: 31-60 minutes MAGDI LUZ MD Sep 21, 2024 10:58
== END 2024-09-21 15:30 | disposition home or self-care (01) | DRG 694 ==
LOC: EDH 14:16 → EDHIP 14:17 → 3BH 09-19 02:17
PROVIDERS: ADMIT Internal Medicine; ATTEND Internal Medicine
DX: N13.2 Hydronephrosis with renal and ureteral calculous obstruction (principal); D72.829 Elevated white blood cell count, unspecified; E87.6 Hypokalemia; K76.0 Fatty (change of) liver, not elsewhere classified; N17.0 Acute kidney failure with tubular necrosis; Z51.5 Encounter for palliative care; Z79.899 Other long term (current) drug therapy; X50.0XXA Overexertion from strenuous movement or load, initial encounter
CPT/HCPCS: 36415; 74176; 76770; 80048; 80053; 81003; 82570; 83605; 83735; 83935; 84100; 84145; 84300; 85025; 85027; 87040; 96374; 99285; G0378; J1644; J1885; J2270; J3475; J7030